=== PATIENT | male | born 1965 | race Caucasian/White ===

== ENCOUNTER 2025-07-16 05:30 | Day surgery (SDC) | payer OTHER ==
[2025-07-11 11:30] VITALS: BMI 21.2
[2025-07-16] MEDS ORDERED: AFRIN NASAL MIST 15 ML BOT ONE (06:22)
[2025-07-16] MEDS ORDERED: Lidocaine 1% w/Epinephrine 1:200K 30 ML VIAL ONE (07:00)
[2025-07-16] MEDS ORDERED: Sevoflurane 250 ML INH ANEST BOTTLE ONE (07:00)
[2025-07-16] MEDS ORDERED: PROPOFOL 20 ML ONE (07:02)
[2025-07-16] MEDS ORDERED: Rocuronium Bromide 10 MG/ML (10ML VIAL) ONE (07:02)
[2025-07-16] MEDS ORDERED: Lidocaine 1% PF 5 ML VIAL ONE (07:02)
[2025-07-16] MEDS ORDERED: Ondansetron PF 4 MG/2 ML Vial ONE (07:02)
[2025-07-16] MEDS ORDERED: Oxymetazoline HCl 0.05% (15 ML) ONE (08:03)
[2025-07-16] MEDS ORDERED: SUGAMMADEX SODIUM 200 MG/2 ML VIAL ONE (08:43)
== END 2025-07-16 10:23 | disposition home or self-care (01) ==
LOC: CSHSDC 05:30
PROVIDERS: ATTEND Otolaryngology Plastic Surgery within the Head & Neck
PROC: 099Q8ZZ Drainage of Right Maxillary Sinus, Via Natural or Artificial Opening Endoscopic (ICD-10-PCS; principal; 2025-07-16)
PROC: 09TL8ZZ Resection of Nasal Turbinate, Via Natural or Artificial Opening Endoscopic (ICD-10-PCS; principal; 2025-07-16)
PROC: 09SM4ZZ Reposition Nasal Septum, Percutaneous Endoscopic Approach (ICD-10-PCS; principal; 2025-07-16)
PROC: 09TV8ZZ Resection of Left Ethmoid Sinus, Via Natural or Artificial Opening Endoscopic (ICD-10-PCS; principal; 2025-07-16)
PROC: 099R8ZZ Drainage of Left Maxillary Sinus, Via Natural or Artificial Opening Endoscopic (ICD-10-PCS; principal; 2025-07-16)
PROC: 09TU8ZZ Resection of Right Ethmoid Sinus, Via Natural or Artificial Opening Endoscopic (ICD-10-PCS; principal; 2025-07-16)
DX: J34.2 Deviated nasal septum (principal); J34.3 Hypertrophy of nasal turbinates; J32.8 Other chronic sinusitis; J34.89 Other specified disorders of nose and nasal sinuses; J45.909 Unspecified asthma, uncomplicated; Z90.49 Acquired absence of other specified parts of digestive tract; Z90.79 Acquired absence of other genital organ(s); Z79.51 Long term (current) use of inhaled steroids
CPT/HCPCS: J1100; J2405; J2704; J3010